=== PATIENT | male | born 2000 | race Caucasian/White ===

== ENCOUNTER → 2022-11-09 | Outpatient (CLI) | payer OTHER ==
[~2022-11-09] MED LIST: CETI10CA13 PO; CHLO25CA PO; FOLI1TAB11 PO; THIA100TA PO; VENTAER INH
== END ==
LOC: M CARPUL 08:22
PROVIDERS: ATTEND Physician Assistant
DX: R05.9 Cough, unspecified (principal); R06.00 Dyspnea, unspecified

== ENCOUNTER 2024-01-22 16:50 | Emergency (ER) | payer OTHER ==
[~2024-01-22] VITALS: Ht 175.3 cm; Wt 71.2 kg
[~2024-01-22 16:50] MED LIST changes: -CHLO25CA PO; +CHLO25CA10 PO
[2024-01-22 20:10] VITALS: BP 127/76; TEMP 98.2; O2SAT 97
== END 2024-01-22 21:23 | disposition left against medical advice (07) ==
LOC: M ED 16:50
DX: Z53.21 Procedure and treatment not carried out due to patient leaving prior to being seen by health care provider (principal)